=== PATIENT | male | born 1980 | race Caucasian/White ===

== ENCOUNTER → 2020-04-25 | Outpatient (CLI) | payer OTHER ==
--- NOTE | 2020-04-25 18:58 | REP ---
INDICATION: F/U LT HAND FX. COMPARISON: Comparison left hand radiographs are from 07 April 2020.. TECHNIQUE: Three views. FINDINGS: AP oblique and lateral views of the left hand are presented. There is a obliquely oriented fracture of the proximal end of the 5th metacarpal again seen. There is very slight diastasis in the fracture and some early periosteal mineralization is seen consistent with early healing. No other fracture is seen. Joint spaces are preserved. IMPRESSION: Proximal 5th metacarpal fracture as above. <Electronically signed by Sharath Wynne > 04/25/20 [id number]
== END ==
LOC: M SOG 11:46
PROVIDERS: ATTEND Orthopaedic Surgery Sports Medicine
DX: S62.347D Nondisplaced fracture of base of fifth metacarpal bone, left hand, subsequent encounter for fracture with routine healing (principal); X58.XXXD Exposure to other specified factors, subsequent encounter

== ENCOUNTER → 2020-05-23 | Outpatient (CLI) | payer OTHER ==
--- NOTE | 2020-05-23 19:43 | REP ---
INDICATION: F/U FX. COMPARISON: 04/07/2020 and 04/25/2020 TECHNIQUE: Three views. FINDINGS: The known fracture at the base of the 5th digit metacarpal is identified as previously. The fracture fragments and impacted in the interim from the prior studies. No periosteal calcification is identified. Position and alignment is otherwise unremarkable. IMPRESSION: Fifth digit metacarpal fracture as described. <Electronically signed by Willian Brooks > 05/23/[id number]
== END ==
LOC: M SOG 13:06
PROVIDERS: ATTEND Orthopaedic Surgery Sports Medicine
DX: S62.347D Nondisplaced fracture of base of fifth metacarpal bone, left hand, subsequent encounter for fracture with routine healing (principal); X58.XXXD Exposure to other specified factors, subsequent encounter